=== PATIENT | male | born 1960 | race Two or more races ===

== ENCOUNTER 2016-10-12 09:31 | Emergency (ER) | payer SELFPAY ==
[~2016-10-12] VITALS: Ht 177.8 cm; Wt 81.6 kg
[2016-10-12] MEDS ORDERED: cefTRIAXone SOD 1,000 MG VL IM ONE (14:30)
[2016-10-12] MEDS ORDERED: KETOROLAC TROMETH 60MG/2ML VIAL IM ONE (14:30)
[2016-10-12 14:59] VITALS: BP 183/114
== END 2016-10-12 15:08 | disposition home or self-care (01) ==
LOC: ER 09:43
DX: L03.211 Cellulitis of face (principal); I10 Essential (primary) hypertension
CPT/HCPCS: 96372; 99284; J0696; J1885

== ENCOUNTER 2022-11-08 12:26 | Inpatient (IN) | payer SELFPAY ==
[~2022-11-08] VITALS: Ht 175.3 cm; Wt 99.0 kg
[2022-11-08] MEDS ORDERED: cloNIDine HCL 0.1 MG TAB PO ONE (13:00)
[2022-11-08 13:14] LABS: Basophils # (auto) 0.1 10 ^3/uL (0-0.2); Basophils % (auto) 1.6 % (0.0-2.0); Eosinophils # (auto) 0 10 ^3/uL (0-0.8); Eosinophils % (auto) 0.5 % (0.0-7.0); Hematocrit 48.4 % (41.0-53.0); Lymphocytes # (auto) 2.2 10 ^3/uL (0.4-5.4); Lymphocytes % (auto) 28.1 % (10.0-50.0); Mean Corpuscular Hemoglobin 29.8 pg (28.0-32.0); Mean Corpuscular Volume 90.2 fL (80.0-100.0); Monocytes # (auto) 0.7 10 ^3/uL (0-1.3); Monocytes % (auto) 8.8 % (0.0-12.0); Neutrophils # (auto) 4.9 10 ^3/uL (1.6-8.6); Nucleated Red Blood Cells % 0.1 %; Red Blood Cells 5.36 10^6/uL (4.5-5.90); Red Cell Distribution Width 14.1 % (11.8-14.3)
[2022-11-08] MEDS ORDERED: amLODIPine BESYLATE 5 MG TAB PO ONE (13:30)
[2022-11-08 13:33] LABS: Chloride 106 mmol/L (98-107); Potassium 4.2 mmol/L (3.5-5.1); Sodium 138 mmol/L (136-145)
[2022-11-08 13:35] LABS: Urine Bacteria NONE SEEN /hpf (None Seen); Urine Blood Negative /uL (Negative); Urine Clarity Clear (Clear); Urine Color Yellow (Yellow); Urine Mucus FEW (None Seen); Urine Protein, UAD TRACE (Negative); Urine Specific Gravity 1.031 (1.001-1.035); Urine Urobilinogen Normal (Negative); Urine WBC 5 /hpf (0 - 3); Urine pH 5.5 (5.0-8.0)
[2022-11-08 13:36] LABS: Anion Gap 6 (5-15); Carbon Dioxide 26 mmol/L (20-30)
[2022-11-08 13:37] LABS: Calcium 9.4 mg/dL (8.7-10.4)
[2022-11-08 13:42] LABS: Alkaline Phosphatase 76 U/L (46-116); BUN/Creatinine Ratio 16.7 (10.0-20.0); Blood Urea Nitrogen 16 mg/dL (9-23); Glucose 135 mg/dL (74-106)
[2022-11-08 13:44] LABS: Alanine Aminotransferase 16 U/L (7-40); Aspartate Aminotransferase 10 U/L (13-40); Bilirubin, Total 0.7 mg/dL (0.2-1.0); Total Protein 7.4 g/dL (5.7-8.2)
[2022-11-08 15:16] VITALS: PULSE 66; RESP 20; O2SAT 96
[2022-11-08] MEDS ORDERED: DOCUSATE SOD 100 MG CAP PO PRN (15:30)
[2022-11-08] MEDS ORDERED: MORPHINE SULFATE INJ 2 MG/ml SYRG IV PRN (15:30)
[2022-11-08] MEDS ORDERED: ONDANSETRON HCL 4 MG/2 ML VIAL IV PRN (15:30)
[2022-11-08] MEDS ORDERED: hydrALAZINE HCL 20 MG/ML VL IV PRN (19:15)
[2022-11-08 19:30] VITALS: PULSE 69; RESP 13; O2SAT 96
[2022-11-09 05:29] LABS: Basophils # (auto) 0.2 10 ^3/uL (0-0.2); Basophils % (auto) 3.4 % (0.0-2.0); Eosinophils # (auto) 0.1 10 ^3/uL (0-0.8); Eosinophils % (auto) 1.2 % (0.0-7.0); Hematocrit 44.7 % (41.0-53.0); Lymphocytes # (auto) 2.6 10 ^3/uL (0.4-5.4); Lymphocytes % (auto) 37.4 % (10.0-50.0); Mean Corpuscular Hgb Conc. 33.5 g/dL (32.0-36.0); Mean Corpuscular Volume 89.7 fL (80.0-100.0); Monocytes # (auto) 0.7 10 ^3/uL (0-1.3); Monocytes % (auto) 9.8 % (0.0-12.0); Neutrophils # (auto) 3.4 10 ^3/uL (1.6-8.6); Neutrophils % (auto) 48.2 % (37.0-80.0); Red Blood Cells 4.98 10^6/uL (4.5-5.90); Red Cell Distribution Width 14.2 % (11.8-14.3); White Blood Cell 7.1 10^3/uL (4.4-10.8)
[2022-11-09 05:47] LABS: Alanine Aminotransferase 15 U/L (7-40); Albumin 4.5 g/dL (3.2-4.8); Alkaline Phosphatase 67 U/L (46-116); Anion Gap 6 (5-15); Aspartate Aminotransferase 13 U/L (13-40); BUN/Creatinine Ratio 14.1 (10.0-20.0); Blood Urea Nitrogen 12 mg/dL (9-23); Carbon Dioxide 25 mmol/L (20-30); Chloride 107 mmol/L (98-107); Glucose 129 mg/dL (74-106); Sodium 138 mmol/L (136-145)
[2022-11-09 05:48] LABS: Bilirubin, Total 0.9 mg/dL (0.2-1.0); Total Protein 6.9 g/dL (5.7-8.2)
[2022-11-09 07:45] VITALS: PULSE 85; RESP 14; O2SAT 95
[2022-11-09] MEDS: LISINOPRIL 20 MG TAB PO SCH (10:37)
[2022-11-09] MEDS: ASPirin 81 mg TAB PO SCH (10:37)
[2022-11-09] MEDS: HCTZ 25 MG TAB PO SCH (10:38)
[2022-11-09 21:05] VITALS: BP 146/89; PULSE 65; PULSE 70; RESP 20; TEMP 98.5; O2SAT 97
[2022-11-09] MEDS ORDERED: AMLO1TAB23 PO (21:18)
[2022-11-09 22:01] VITALS: BP 146/89; PULSE 76; RESP 20; TEMP 98.5; O2SAT 97
[2022-11-09 23:33] VITALS: BP 125/74; PULSE 61
[2022-11-10 05:00] VITALS: BP 119/75; PULSE 60; RESP 20; TEMP 98.1; O2SAT 97
[2022-11-10 08:00] VITALS: BP 140/91; PULSE 1; PULSE 54; PULSE 81; RESP 20; TEMP 97.9
[2022-11-10 09:00] VITALS: BP 135/77; PULSE 61; RESP 22; TEMP 98.2; O2SAT 96
[2022-11-10] MEDS: HCTZ 25 MG TAB PO SCH (09:03)
[2022-11-10] MEDS: ASPirin 81 mg TAB PO SCH (09:03)
[2022-11-10] MEDS: LISINOPRIL 20 MG TAB PO SCH (09:04)
[2022-11-10] MEDS ORDERED: LISI20TA56 PO (11:52)
[2022-11-10] MEDS ORDERED: HYDR25TA5 PO (11:52)
[2022-11-10 12:53] VITALS: BP 140/91; PULSE 69; TEMP 36.8
== END 2022-11-10 14:39 | disposition home or self-care (01) | DRG 305 ==
LOC: ER 12:26 → TELE 15:21 → TELE-WESTW 11-09 21:06
PROVIDERS: ADMIT Nurse Practitioner Family; ATTEND Internal Medicine
DX: I16.1 Hypertensive emergency (principal); I10 Essential (primary) hypertension; R73.03 Prediabetes; Z79.899 Other long term (current) drug therapy
CPT/HCPCS: 36415; 70450; 71045; 74176; 80053; 81001; 83036; 84484; 85025; 93005; 99291; G0378

== ENCOUNTER 2023-03-11 10:31 | Emergency (ER) | payer SELFPAY ==
[~2023-03-11] VITALS: Ht 177.8 cm; Wt 97.0 kg
[~2023-03-11 10:31] MED LIST: AMLO1TAB23 PO; HYDR25TA5 PO; LISI20TA56 PO
[2023-03-11] MEDS ORDERED: AMLO1TAB23 PO (10:49)
[2023-03-11] MEDS ORDERED: cloNIDine HCL 0.1 MG TAB PO ONE (11:00)
[2023-03-11 11:03] VITALS: BP 178/103; PULSE 66; RESP 18; O2SAT 98
== END 2023-03-11 11:23 | disposition home or self-care (01) ==
LOC: ER 10:31
DX: I16.1 Hypertensive emergency (principal); Z79.899 Other long term (current) drug therapy

== ENCOUNTER 2024-04-22 17:13 | Emergency (ER) | payer MEDICAID, OTHER ==
[~2024-04-22] VITALS: Ht 177.8 cm; Wt 104.3 kg
--- NOTE | 2024-04-22 18:08 | ED.PDOC ---
History of Present Illness HPI Comments 63M presnets to the ER w/ no prior Hx associated to the c/c of HTN. Pt reports that he was sent by his PCP due from his blood pressure being high and has symptoms of [id number] and bussing in the ear. Pt notes that he has a follow up appointment with his PCP next week. Pt BP in triage was 200/100. Denie s chills, fever, N/V/D, SOB, CP. Chief Complaint: High Blood Pressure Time Seen by MD: 17:55 Primary Care Provider: UNKNOWN Reviewed Notes: Nurses Notes, Medications, Allergies Allergies: Coded Allergies: NO KNOWN ALLERGIES (Unverified , 08/03/14) Home Meds Active Scripts Amlodipine Besylate (Amlodipine Besylate) 10 Mg Tab, 1 TAB PO DAILY, #30 TAB 5 Refills Prov:NAOMI JIMÉNEZ MD 03/11/23 Lisinopril (Lisinopril) 20 Mg Tab, 20 MG PO DAILY, #30 TAB 5 Refills Prov:ZANDER DASH MD 11/10/22 Hctz (Hydrochlorothiazide) 25 Mg Tab, 12.5 MG PO DAILY, #30 TAB 2 Refills Prov:ZANDER DASH MD 11/10/22 Reported Medications Amlodipine Besylate (Amlodipine Besylate) 10 Mg Tab, 1 TAB PO DAILY 11/09/22 Information Source: Patient Mode of Arrival: Ambulatory Severity: Moderate Timing: Hours Duration: Since onset, Hours Prehospital treatment: None Past Medical History PAST MEDICAL HISTORY: Denies Surgical History: Denies all surgeries Family History Family History: Reviewed,noncontributory to illness, Unknown Social History Smoker: Non-Smoker Alcohol: Denies ETOH Use Drugs: Denies Drug Use Lives In: Home Constitutional: denies: chills, diaphoresis, fatigue, fever, malaise, sweats, weakness, others EENTM: denies: blurred vision, double vision, ear bleeding, ear discharge, ear drainage, ear pain, ear ringing, eye pain, eye redness, hearing loss, mouth pain, mouth swelling, nasal discharge, nose bleeding, nose congestion, nose pain, photophobia, tearing, throat pain, throat swelling, voice changes, others Respiratory: denies: cough, hemoptysis, orthopnea, SOB at rest, shortness of breath, SOB with excertion, stridor, wheezing, others Cardiovascular: reports: others (HTN); denies: chest pain, dizzy spells, diaphoresis, Dyspnea on exertion, edema, irregular heart beat, left arm pain, lightheadedness, palpitations, PND, syncope Gastrointestinal: denies: abdomen distended, abdominal pain, blood streaked bowels, constipated, diarrhea, dysphagia, difficulty swallowing, hematemesis, melena, nausea, poor appetite, poor fluid intake, rectal bleeding, rectal pain, vomiting, others Genitourinary: denies: burning, dysuria, flank pain, frequency, hematuria, incontinence, penile discharge, penile sore, pain, testicle pain, testicle swelling, urgency, others Neurological: denies: dizziness, fainting, headache, left sided numbness, left sided weakness, numbness, paresthesia, pre-existing deficit, right sided numbness, right sided weakness, seizure, speech problems, tingling, tremors, weakness, others Musculoskeletal: denies: back pain, gout, joint pain, joint swelling, muscle pain, muscle stiffness, neck pain, others Integumetry: denies: bruises, change in color, change in hair/nails, dryness, laceration, lesions, lumps, rash, wounds, others Allergic/Immunocompromised: denies: Difficulty Healing, Frequent Infections, Hives, Itching, others Hematologic/Lymphatic: denies: anemia, blood clots, easy bleeding, easy bruising, swollen glands, others Endocrine: denies: excessive hunger, excessive sweating, excessive thirst, excessive urination, flushing, intolerance to cold, intolerance to heat, unexplained weight gain, unexplained weight loss, others Psychiatric: denies: anxiety, bipolar disorder, depression, hopeless, panic disorder, schizophrenia, sleepless, suicidal, others All Other Systems: Reviewed and Negative Physical Exam General Appearance: No Apparent Distress, Normal HEENT: Normal ENT Inspection, Pharynx Normal, TMs Normal Neck: Full Range of Motion, Non-Tender, Normal, Normal Inspection Respiratory: Chest Non-Tender, Lungs Clear, No Accessory Muscle Use, No Respiratory Distress, Normal Breath Sounds Cardiovascular: No Edema, No JVD, No Murmur, No Gallop, Normal Peripheral Pulses, Regular Rate/Rhythm Breast Exam: Deferred Gastrointestinal: No Organomegaly, Non Tender, No Pulsatile Mass, Normal Bowel Sounds, Soft Genitalia: Deferred Pelvic: Deferred Rectal: Deferred Extremities: No calf tenderness, Normal capillary refill, Normal inspection, Normal range of motion, Non-tender, No pedal edema Musculoskeletal : Apperance: Normal Neurologic: Alert, 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 Was a procedure done?: No Differential Dx Considerations may include: HAS BEEN URGENCY, UNCONTROLLED HYPERTENSION, PRIMARY HYPERTENSION X-Ray, Labs, Meds, VS Vital Signs Date Time Temp Pulse Resp B/P (MAP) Pulse Ox O2 Delivery O2 Flow Rate FiO2 04/22/24 17:46 99.0 78 16 214/110 (144) 96 04/22/24 17:46 78 X-Ray, Labs, Meds, VS Comment IMAGING: X-RAYS AND CT SCANS WERE REVIEWED AND INTERPRETED BY THIS PROVIDER, IMAGING SHOWS NO FRACTURES AND NO PATHOLOGICAL DISEASE. PENDING RADIOLOGY REVIEW. LABORATORY: LABS REVIEWED AND INTERPRETED BY THIS PROVIDER. NO SIGNIFICANT ABNORMALITIES NOTED. PATIENT HAS PRIOR MEDICAL VISITS REVIEWED. MED RECONCILIATION PERFORMED VITAL SIGNS REVIEWED Time of 1ST Reevaluation: 18:25 Reevaluation 1ST: Unchanged Patient Education/Counseling: Diagnosis, Treatment, Prognosis, Need For Follow Up (PATIENT ADVISED TO FOLLOW-UP IN THE EMERGENCY ROOM IN THE NEXT 24 TO 48 HOURS IF SYMPTOMS DO NOT IMPROVE. ADVISED FOLLOW-UP WITH PCP IN THE NEXT 3 TO 5 DAYS. PATIENT VERBALIZED UNDERSTANDING. ) Family Education/Counseling: No Family Present Departure 1 Departure Time of Disposition: 20:13 Impression: Primary Impression: Hypertensive emergency Disposition: 01 HOME / SELF CARE / HOMELESS Condition: Fair e-Prescriptions Amlodipine Besylate (Amlodipine Besylate) 5 Mg Tab 1 TAB PO DAILY, #30 TAB 5 Refills Prov: DAFNE HOWARD 04/22/24 Discharged With: Self Critical Care Note Critical Care Time?: No Stability Stability form required: No Heart Score Heart Score: Heart Score Response (Comments) Value History N/A 0 EKG N/A 0 Age N/A 0 Risk Factors N/A 0 Troponin N/A 0 Total 0 I personally scribed for DAFNE HOWARD ([facility] on 04/22/24 at 18:08. Electronically submitted by Orlando De Guzman ([email or web address]). DAFNE HOWARD Apr 22, 2024 18:08
[2024-04-22 20:05] VITALS: O2SAT 96
[2024-04-22] MEDS ORDERED: AMLO1TAB22 PO (20:13)
[2024-04-22] MEDS: cloNIDine HCL 0.1 MG TAB PO ONE (20:16)
[2024-04-22 20:40] VITALS: BP 189/111; PULSE 70; RESP 20; TEMP 98.1; O2SAT 97
--- NOTE | 2024-04-23 13:37 | ECG ---
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
== END 2024-04-22 20:46 | disposition home or self-care (01) ==
LOC: ER 17:13
DX: I16.1 Hypertensive emergency (principal); Z79.899 Other long term (current) drug therapy
CPT/HCPCS: 82947; 93005